=== PATIENT | male | born 1980 | race Caucasian/White ===

== ENCOUNTER 2018-08-23 09:17 | Day surgery (SDC) | payer BC ==
[2018-08-23 09:54] VITALS: BMI 27.5
--- NOTE | 2018-08-23 11:31 | CP.SDSHP ---
Same Day Surgery H & P - History Proposed Procedure: EGD Pre-Op Diagnosis: heartburn - Allergies Allergies: Allergies No Known Allergies Allergy (Verified 08/22/18 14:07) - Physical Exam General Appearance: NAD Vital Signs: Vital Signs 08/23/18 09:49 Temperature 97 F L Pulse Rate 64 Respiratory 19 Rate Blood Pressure 127/82 O2 Sat by Pulse 99 Oximetry Mental Status: Alert & Oriented x3 Neuro: WNL Heart: WNL Lungs: WNL GI: WNL - {Optional Preform as Required} Abdomen: WNL - Impression Pt. Evaluated Today:Candidate for Anesthesia & Procedure: Yes - Date & Time Date: 08/23/18 Time: 11:31 Short Stay Discharge - Short Stay Discharge Admitting Diagnosis/Reason for Visit: HEARTBURN Disposition: HOME/ ROUTINE
[2018-08-23] MEDS ORDERED: Midazolam 2 MG/2 ML VIAL ONE (11:38)
[2018-08-23] MEDS ORDERED: Propofol 10 mg/ml Inj (20 ML) ONE (11:38)
[2018-08-23] MEDS ORDERED: Lidocaine Hydrochloride 5 ML INJ ONE (11:56)
[2018-08-23 13:23] VITALS: RESP 18; TEMP 97.3
[2018-08-23 13:24] VITALS: O2SAT 100
[2018-08-23 13:31] VITALS: BP 127/88; PULSE 75
== END 2018-08-23 13:00 | disposition home or self-care (01) ==
LOC: C.ENDO 09:17
PROVIDERS: ATTEND Internal Medicine Gastroenterology
DX: K29.50 Unspecified chronic gastritis without bleeding (principal); K21.0 Gastro-esophageal reflux disease with esophagitis
CPT/HCPCS: 43239; 88305; 88312; 88313; 88342; J2250; J2704; J3010; J7040